=== PATIENT | male | born 1970 | race Caucasian/White ===

== ENCOUNTER 2024-02-17 13:33 | Outpatient (OUT) | payer BC, SELFPAY ==
--- NOTE | 2024-02-17 13:42 | US_ITS ---
The [address] [address] Patient Name: LYDIA MURRAY MRN: [id number] date: 1970 Sex: M Assigned Patient Location: US Current Patient Location: US Accession/Order Number: [id number] Exam Date: 02/17/2024 13:43 Report Date: 02/17/2024 14:14 At the request of: NOELLE SAHU Procedure: US venous doppler LE LT CLINICAL DATA: Leg pain PROCEDURE: Left lower extremity venous duplex ultrasound TECHNIQUE: Theodore-scale, color flow, and waveform spectral analysis was performed of the left lower extremity. FINDINGS: The left common femoral, profunda femoral, femoral, and popliteal veins were compressible. The saphenous vein was compressible. No venous thrombosis was seen. The veins fill with color Doppler. Augmentation was normal. US/US venous doppler LE LT IMPRESSION: 1. No acute lower extremity deep venous thrombosis. 2. No superficial venous thrombosis. Electronically authenticated by: Celso HARPER Date: 02/17/2024 14:14
== END 2024-02-17 13:34 | disposition home or self-care (01) ==
PROVIDERS: PCP Family Medicine; Visit Provider Physician Assistant Medical
DX: Z86.718 Personal history of other venous thrombosis and embolism (principal)
CPT/HCPCS: 93971